=== PATIENT | female | born 1960 | race Caucasian/White ===

== ENCOUNTER 2018-01-05 13:17 | Emergency (ER) | payer OTHER ==
[2018-01-05] MEDS: KETOROLAC 30 MG INJ IM (16:24)
== END 2018-01-05 17:10 | disposition home or self-care (01) ==
LOC: FTE 13:17
DX: M54.2 Cervicalgia (principal)
CPT/HCPCS: 72040; 93005; 96372; 99284-25

== ENCOUNTER 2018-06-03 11:27 | Emergency (ER) | payer OTHER | END 2018-06-03 13:48 | disposition home or self-care (01) | LOC: FTE 11:27 | DX: M54.2 Cervicalgia (principal) | CPT/HCPCS: 72040; 99283-25 ==

== ENCOUNTER 2018-06-16 16:00 | Emergency (ER) | payer OTHER ==
[2018-06-16] MEDS: KETOROLAC 30 MG INJ IM (20:33)
== END 2018-06-16 20:41 | disposition home or self-care (01) ==
LOC: FTE 16:00
DX: K04.7 Periapical abscess without sinus (principal)
CPT/HCPCS: 96372; 99284-25